=== PATIENT | female | born 1960 | race Caucasian/White ===

== ENCOUNTER 2016-06-04 12:16 | Emergency (ER) | payer MEDICARE, MEDICAID ==
--- NOTE | 2016-06-10 16:06 | ER ---
ADMIT: 06/04/2016 RM/LOC: [facility] MR#: [id number] [id number] NEAL VORA [address] [place] [id number] Emergency Room Report SEX: F AGE: 56 : 1960 DATE: 06/04/2016 This 56-year-old female, presents to emergency room with abdominal pain for about 6 days. She points to the left lower quadrant with some cramping around the lower abdomen. Denies any fever, nausea, vomiting, sweating. No loss of appetite. REVIEW OF SYSTEMS: Otherwise negative. PAST MEDICAL HISTORY: Breast cancer. She has had a partial mastectomy on the left side. Eye surgery. MEDICATIONS: See T-sheet. ALLERGIES: SEE T-SHEET. PHYSICAL EXAMINATION: VITAL SIGNS: Blood pressure is 163/77 with a heart rate of 89, respirations 16, temperature is 100.7 with 95% O2 sats. GENERAL: Mildly anxious. Very pleasant. Drove herself over for evaluation. NECK: Supple. RESPIRATIONS: No distress. CARDIOVASCULAR: Regular in rate and rhythm. ABDOMEN: Tenderness in the left lower quadrant. No psoas or Rovsing sign. BACK: Normal inspection. SKIN: Good color and turgor. EXTREMITIES: Nontender. NEUROLOGIC: Oriented x4. Mood and affect appropriate. LABORATORY DATA: WBC completely normal. Chemistry normal with a creatinine of 1.2. UA is hazy, but otherwise normal. Her alkaline phosphatase is 86, lipase is 295. I did do ultrasound of the abdomen which did show some fluid around the right ovary. Because she continued with the pain and there was some ADMIT: 06/04/2016 RM/LOC: [facility] MR#: [id number] [id number] NEAL VORA [address] [facility] [address] [place] [address] Emergency Room Report SEX: F AGE: 56 : 1960 questionable fluid in the area, and history of cancer, I did do a CT scan of the abdomen and pelvis, and it has a complicated report that includes possibility of bone metastasis with bone scan recommended as a followup. Also there are multiple exophytic uterine fibroids versus malignancy and the pelvic ultrasound is also suggested. Also mention of gastritis and duodenitis. Based on the CT scan, I went ahead and treated the patient with GI cocktail which did help a bit. I sent home with a prescription for Carafate and made an appointment for her for Tuesday with [facility] at 11:30 for further evaluation of the issues. I did talk to Dr. Ferris, oncologist, and he recommended that we made an appointment for the patient as in April she had seen [facility] and everything looked okay as far as her labs were concerned. The patient was notified of the findings and advised to not miss the appointment on Tuesday. She verbalized understanding. MOIZ Apodaca / Vasquez Bonilla MD / oneyda JOB #: [id number] CC: Vasquez Bonilla MD, Attending Physician
== END 2016-06-04 16:15 | disposition home or self-care (01) ==
LOC: ER 12:16
DX: K29.70 Gastritis, unspecified, without bleeding (principal); K29.80 Duodenitis without bleeding; R10.32 Left lower quadrant pain; Z85.3 Personal history of malignant neoplasm of breast; Z98.890 Other specified postprocedural states